=== PATIENT | female | born 1980 | race Caucasian/White ===

== ENCOUNTER 2017-06-25 22:47 | Emergency (ER) | END 2017-06-26 04:48 | disposition home or self-care (01) ==

== ENCOUNTER 2018-08-05 20:14 | Emergency (ER) | payer MEDICAID ==
[~2018-08-05] VITALS: Ht 162.6 cm; Wt 88.2 kg
[~2018-08-05 20:14] MED LIST: CALC600T5 PO; FERR240T9 PO; IBUP-1542 PO; PREN-39 PO
[2018-08-05 20:18] VITALS: BP 154/93; PULSE 69; RESP 20; Ht 162.6 cm; Wt 88.2 kg
[2018-08-05] MEDS ORDERED: predniSONE 20 MG TAB PO ONE (21:30)
[2018-08-05] MEDS ORDERED: DIPHENHYDRAMINE 50 MG INJ IM ONE (21:30)
[2018-08-05] MEDS ORDERED: BEN25 PO (21:48)
[2018-08-05] MEDS ORDERED: PRED20TA PO (21:48)
--- NOTE | 2018-08-05 21:51 | ERD ---
ER Documentation Chief Complaint Chief Complaint rash 20 mins ago; felt tightness on throat; not in distress HPI 38-year-old female presents with a rash approximately 30 minutes ago. She said intermittent rash for the last week. She believes it started after having her house fumigated. She states that the rash appears when she is in her house and resolves when she leaves her house. The rash is itchy. She denies fevers, vomiting, abdominal pain. She has sensation of throat itchiness but no shortness of breath. She denies previous allergies. Denies any new foods or new medications. ROS All systems reviewed and are negative except as per history of present illness. Medications Home Meds Active Scripts Diphenhydramine Hcl* (Benadryl*) 25 Mg Cap, 25 MG PO Q6, #20 CAP Prov:NAVNEET MARQUEZ MD 08/05/18 Prednisone* (Prednisone*) 20 Mg Tab, 40 MG PO DAILY for 4 Days, TAB Start August 06, 2018 Prov:NAVNEET MARQUEZ MD 08/05/18 Ibuprofen* (Motrin*) 600 Mg Tab, 600 MG PO Q6, #30 TAB Prov:TYSON MELENDREZ PA-C 06/26/17 Reported Medications Calcium Carbonate (CALCIUM) 600 Mg Tablet, 600 MG PO DAILY 08/13/14 Vits W-Ca,Fe,Fa(<1MG) ( Vitamins) 1 Tab Tablet, 1 TAB PO DAILY 08/13/14 Ferrous Gluconate (Iron) 1 Tab Tablet, 1 TAB PO DAILY 08/13/14 Allergies Allergies: Coded Allergies: No Known Allergy (Verified , NKA, 01/27/06) PMhx/Soc Medical and Surgical Hx: pt denies Medical Hx, pt denies Surgical Hx Hx Alcohol Use: No Hx Substance Use: No Hx Tobacco Use: No FmHx Family History: No diabetes, No coronary disease, No other Physical Exam Vitals Vital Signs Date Temp Pulse Resp B/P (MAP) Pulse Ox O2 O2 Flow FiO2 Time Delivery Rate 08/05/18 98.5 69 20 154/93 97 20:18 (113) Physical Exam Const: No acute distress Head: Atraumatic Eyes: Normal Conjunctiva ENT: Normal External Ears, Nose and Mouth. Neck: Full range of motion. No meningismus. Resp: Clear to auscultation bilaterally Cardio: Regular rate and rhythm, no murmurs Abd: Soft, non tender, non distended. Normal bowel sounds Skin: No petechiae or rashes Back: No midline or flank tenderness Ext: No cyanosis, or edema Neur: Awake and alert Psych: Normal Mood and Affect Results 24 hrs Current Medications Medications Dose Sig/Goldie Start Time Status Last (Trade) Ordered Route PRN Stop Time Admin Dose Reason Admin 25 mg ONCE ONCE 08/05/18 DC 08/05/18 Diphenhydrami IM 21:30 21:26 ne HCl 08/05/18 21:31 (Benadryl) Prednisone 60 mg ONCE ONCE 08/05/18 DC 08/05/18 (Prednisone) PO 21:30 21:25 08/05/18 21:31 Procedures/MDM She presents with an itchy rash earlier today which is currently resolved. She does have a picture which shows wheal type lesions with dermatographia some. Patient appears to be likely having urticarial type reaction. She has no signs of hypoxemia, rest or distress, anaphylaxis, cellulitis. She was given Benadryl 25 mg IM, prednisone 60 mg by mouth and we treated with a continuation of prednisone, Benadryl, observation of exposures for possible allergens. She may need to cleaning of sheets and bedding etc. if there is something in the house related to fumigation. She is was advised to avoid exposure to inciting allergens. She should return for shortness of breath, fevers, abdominal pain, new worsening symptoms with primary care doctor. We will treat with continuation of prednisone and Benadryl at home. The patient was stable with no new complaints during the ER course. Clinically, there is no current evidence to suggest meningitis, sepsis, acute abdomen, pneumonia, stroke, acute coronary syndrome, pulmonary embolism, aortic dissection or any other emergent condition appearing to require further evaluation or hospitalization. Patient counseled regarding my diagnostic impression and care plan. Prior to discharge all questions answered. Pt agrees with treatment plan and understands strict return precautions. Pt is instructed to follow up with primary care provider within 24- 48 hours. Precautionary instructions provided including instructions to return to the ER if not improving or for any worsening or changing symptoms or concerns. Disclaimer: Inadvertent spelling and grammatical errors are likely due to E HR/dictation software use and do not reflect on the overall quality of patient care. Also, please note that the electronic time recorded on this note does not necessarily reflect the actual time of the patient encounter. Departure Diagnosis: Primary Impression: Rash Condition: Stable Patient Instructions: Hives Referrals: DOCTOR,NOT ON STAFF (PCP) Additional Instructions: ariadnekyler probablamente es un allergia. Cheque otro vez con claudio doctor primario en el proximo sahu or regresa para mas o nueva simptomas. NAVNEET MARQUEZ MD August 05, 2018 21:51
== END 2018-08-05 21:55 | disposition home or self-care (01) ==
LOC: FTE 20:14
DX: R21 Rash and other nonspecific skin eruption (principal)
CPT/HCPCS: 96372; J1200; J7512; Z7502